=== PATIENT | female | born 1960 | race Caucasian/White ===

== ENCOUNTER → 2020-05-06 | Outpatient (CLI) | payer OTHER ==
[2020-05-06 11:13] LABS: CREATININE 0.8 mg/dL (0.6-1.3)
--- NOTE | 2020-05-06 11:21 | NUR ---
labs sent to laboratory. Hydration started with 100ml/hr Normal saline. Patient given 150mg Metoprolol PO for heartrate control. Patient currently 67 down from 73. will continue to monitor
== END ==
LOC: M.LAB 05-04 10:30 → M.CT 05-04 11:00
PROVIDERS: Radiology Diagnostic Radiology; ATTEND Internal Medicine
DX: Z01.812 Encounter for preprocedural laboratory examination (principal); R07.89 Other chest pain; I70.0 Atherosclerosis of aorta